=== PATIENT | male | born 2000 | race American Indian/Alaskan Native ===

== ENCOUNTER 2021-02-12 15:09 | Emergency (ER) | payer SELFPAY ==
[2021-02-12 16:40] VITALS: BP 116/76
--- NOTE | 2021-02-12 16:43 | Emergency Department Report ---
Chief Complaint: Medical Clearance Stated Complaint: STD CHECK Time Seen by Provider: 02/12/21 16:40 - HPI History of Present Illness: Patient is a 20-year-old male who presents emergency department with complaints of concerns for STD. Patient states he was recently sexually active without protection. He states for the last 2 days he has had dysuria and penile discharge. He denies any fever, nausea, vomiting, diarrhea, hematuria, urinary retention, pain or swelling the testicles, abdominal pain, back pain. No past medical history. No allergies to medications. Vitals are normal On exam: Non toxic appearing, no acute distress atraumatic, normocephalic normal appearance of the eyes, EOMI, no periorbital edema or ecchymosis moist mucus membranes No respiratory stress, no excessive muscle use A&O x4, normal gait Patient is presenting for concerns for STD This hospital facility does not test or treat for uncomplicated male STDs He is not having any fever, nausea, vomiting, diarrhea, hematuria, urinary retention, pain or swelling the testicles, abdominal pain, back pain. Patient given the appropriate resources to receive STD testing and treatment as appropriate Discussed return precautions Discussed the importance of follow-up Advised to return to emergency room for any new or worsening symptoms Screen examination performed and there is no threat to life or limb at this time - Exam Vital Signs: Vital Signs 02/12/21 16:39 Temperature 97.8 F Pulse Rate 66 Respiratory 16 Rate Blood Pressure 116/76 [Right] O2 Sat by Pulse 98 Oximetry MSE screening note: Focused history and physical exam performed. ED Disposition for MSE Clinical Impression: Concern about STD in male without diagnosis Disposition: 01 HOME / SELF CARE / HOMELESS Is pt being admited?: No Does the pt Need Aspirin: No Condition: Stable Instructions: Safe Sex Additional Instructions: please follow up with clinic or health department for full STD panel. have any partner tested and treated as well. avoid sexual intercourse. return to the emergency room for any new or worsening symptoms. walk in clinic: [facility] Address: [address] [place] [id number] Referrals: [facility] [Outside] - 2-3 Days Time of Disposition: 16:41 Print Language: BULGARIAN
== END 2021-02-12 16:43 | disposition home or self-care (01) ==
LOC: ED 15:09
DX: Z20.2 Contact with and (suspected) exposure to infections with a predominantly sexual mode of transmission (principal)
CPT/HCPCS: 99281